=== PATIENT | female | born 1995 | race Hispanic/Latino ===

== ENCOUNTER 2019-04-27 17:20 | Emergency (ER) | payer OTHER ==
[2019-04-27] MEDS ORDERED: DIPHENHYDRAMINE 50 MG/ML VIAL ONE (18:56)
[2019-04-27] MEDS ORDERED: METOCLOPRAMIDE 10 MG/2mL INJ ONE (18:56)
[2019-04-27] MEDS ORDERED: NA CHLORIDE 0.9% 1,000 ML ONE (18:56)
[2019-04-27] MEDS ORDERED: KETOROLAC 30 MG/ML INJ ONE (18:56)
--- NOTE | 2019-04-27 20:05 | EDPHYS ---
Physician Documentation [facility] Name: Clary Duff Age: 24 yrs Sex: Female : 1995 Arrival Date: 04/27/2019 Time: 17:21 Bed 13 Private MD: ED Physician Mayur Leonardo HPI: 04/26 18:26 This 24 yrs old Female presents to ER via Ambulatory with complaints of la1 Nausea, Headache, Blurred Vision, Low Pulse Rate. 18:26 The patient complains of pain to the left restorationist. The patient describes the headache as la1 throbbing. Onset: The symptoms/episode began/occurred this morning. Associated signs and symptoms: Pertinent positives: nausea, Photophobia. Severity of symptoms: At its worst the pain was moderate. Headache History: Denies prior headaches. The symptoms are alleviated by Darkened room, the symptoms are aggravated by nothing. The patient has not experienced similar symptoms in the past. pt reports pain in left restorationist with right sided visual changes. Pt PEREZ is improving, reports a little blurred vision in the right eye at this time. 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 - Social history:: Smoking status: Patient denies any tobacco usage or history of. ROS: 18:27 Constitutional: Negative for fever, chills, and weight loss, Eyes: + blurry vision la1 right eye ENT: Negative for injury, pain, and discharge, Neck: Negative for injury, pain, and swelling, Cardiovascular: Negative for chest pain, palpitations, and edema, Respiratory: Negative for shortness of breath, cough, wheezing, and pleuritic chest pain, Abdomen/GI: Negative for abdominal pain, nausea, vomiting, diarrhea, and constipation, Back: Negative for injury and pain, MS/Extremity: Negative for injury and deformity. 18:27 Skin: Negative for injury, rash, and discoloration. 18:27 Neuro: Positive for headache. Exam: 18:28 Constitutional: This is a well developed, well nourished patient who is awake, alert, la1 and in no acute distress. Head/Face: Normocephalic, atraumatic. Eyes: Pupils equal round and reactive to light, extra-ocular motions intact. ENT: Mucous membranes moist. Neck: Trachea midline, Chest/axilla: Normal chest wall appearance and motion. Nontender with no deformity. No lesions are appreciated. Cardiovascular: Regular rate and rhythm with a normal S1 and S2. Respiratory: Lungs have equal breath sounds bilaterally, clear to auscultation Abdomen/GI: Soft, non-tender, with normal bowel sounds. No distension or tympany. No guarding or rebound. No evidence of tenderness throughout. Back: No spinal tenderness. No costovertebral tenderness. Full range of motion. Skin: Warm, dry with normal turgor. Normal color with no rashes, no lesions, and no evidence of cellulitis. MS/ Extremity: Pulses equal, no cyanosis. Neurovascular intact. Full, normal range of motion. 18:28 Neuro: Orientation: is normal, to person, place, time \T\ situation. Mentation: Memory: is normal, Cranial nerves: CN II- XII are normal as tested, visual gonzalez are intact. extraocular movements are intact, Nystagmus is absent. Cerebellar function: normal finger to nose testing, heel to huff testing is normal, Sensation: is normal. Vital Signs: 17:45 Pulse 98; Pulse Ox 98% ; dm5 19:57 BP 107 / 62; Pulse 91; Resp 16; Pulse Ox 100% on R/A; Pain 0/10; aj1 MDM: 17:46 Patient medically screened. la1 20:03 Data reviewed: vital signs, nurses notes. Data interpreted: Pulse oximetry: on room air la1 is 100 %. Interpretation: normal. Counseling: I had a detailed discussion with the patient and/or guardian regarding: the historical points, exam findings, and any diagnostic results supporting the discharge/admit diagnosis, the need for outpatient follow up, a family practitioner, to return to the emergency department if symptoms worsen or persist or if there are any questions or concerns that arise at home. Medication response: Toradol relieved patient's pain. The symptoms have resolved. Response to treatment: the patient's symptoms have resolved after treatment, the patient's condition has returned to base line, and as a result, I will discharge patient. ED course: pt feeling much better after meds, back to normal. No neurological deficits. strict return precautions given. 04/26 18:53 Order name: Urine Dipstick--Ancillary (enter results) bd 04/26 18:53 Order name: Urine --Ancillary (enter results) bd 04/26 17:55 Order name: IV; Complete Time: 18:51 la1 04/26 17:55 Order name: Urine Dipstick-Ancillary (obtain specimen); Complete Time: 18:51 la1 04/26 17:55 Order name: Urine Test (obtain specimen); Complete Time: 18:51 la1 Administered Medications: 19:04 Drug: NS 0.9% 1000 ml Route: IV; Rate: 1000 ml; Site: left antecubital; aj1 19:58 Follow up: IV Status: Completed infusion; IV Intake: 1000ml aj1 19:05 Drug: TORadol - Ketorolac 15 mg Route: IVP; Site: right antecubital; aj1 19:59 Follow up: Response: No adverse reaction; Marked relief of symptoms aj1 19:05 Drug: Reglan 10 mg Route: IVP; Site: right antecubital; aj1 19:58 Follow up: Response: No adverse reaction; Marked relief of symptoms aj1 19:05 Drug: Benadryl 12.5 mg Route: IVP; Site: right antecubital; aj1 19:58 Follow up: Response: No adverse reaction; Marked relief of symptoms aj1 Disposition: 04/27 07:06 Co-signature as Attending Physician, Mayur Leonardo MD I agree with the assessment and kdr plan of care. Disposition: 04/27/19 20:04 Discharged to Home. Impression: Headache. - Condition is Stable. - Discharge Instructions: General Headache Without Cause, Migraine Headache. - Medication Reconciliation Form, Thank You Letter form. - Follow up: Private Physician; When: 2 - 3 days; Reason: Recheck today's complaints, Re-evaluation by your physician. - Problem is new. - Symptoms have improved. 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 Impression: Headache. Condition is Stable. aa1 Forms are Medication Reconciliation Form, Thank You Letter, Antibiotic Education, Prescription Opioid Use. Follow up: Private Physician; When: 2 - 3 days; Reason: Recheck today's complaints, Re-evaluation by your physician. Problem is new. Symptoms have improved. la1
--- NOTE | 2019-04-27 20:05 | ER ---
Nurse's Notes [facility] Name: Clary Duff Age: 24 yrs Sex: Female : 1995 Arrival Date: 04/27/2019 Time: 17:21 Bed 13 Private MD: Diagnosis: Headache Presentation: 04/26 18:21 Chief complaint: Patient states: She woke up this morning with a headache and nausea. aj1 She felt worse while she was at work so she checked with the diagnostics nurse who checked her vital signs and told her that she was concerned because her heart rate was 92 and her blood pressure was 128/75. Coronavirus screen: The patient has NOT traveled to a country currently being monitored by the [facility] within the last 14 days. Ebola Screen: Patient denies travel to an Ebola-affected area in the 21 days before illness onset. Initial Sepsis Screen: Does the patient meet any 2 criteria? No. Patient's initial sepsis screen is negative. Does the patient have a suspected source of infection? No. Patient's initial sepsis screen is negative. Risk Assessment: Do you want to hurt yourself or someone else? Patient reports no desire to harm self or others. 18:21 Method Of Arrival: Ambulatory aj1 18:21 Acuity: ANN 3 aj1 Triage Assessment: 18:23 General: Appears in no apparent distress. comfortable, Behavior is calm, cooperative, aj1 appropriate for age. Pain: Complains of pain in left gnosticism. GI: Reports nausea. 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 - Social history:: Smoking status: Patient denies any tobacco usage or history of. Screenin:30 Abuse screen: Denies threats or abuse. Denies injuries from another. Nutritional aj1 screening: No deficits noted. Tuberculosis screening: No symptoms or risk factors identified. Assessment: 18:30 General: Appears in no apparent distress. uncomfortable, Behavior is calm, cooperative, aj1 appropriate for age. Pain: Complains of pain in left gnosticism Pain does not radiate. Neuro: Level of Consciousness is awake, alert, obeys commands, Oriented to person, place, time, situation, Adoption Specialist are equal bilaterally Moves all extremities. Full function Gait is steady, Speech is normal, Facial symmetry appears normal, Reports headache. Cardiovascular: Patient's skin is warm and dry. Respiratory: Airway is patent Respiratory effort is even, unlabored, Respiratory pattern is regular, symmetrical. GI: Abdomen is flat, non-distended, Reports nausea, Patient currently denies vomiting. : No signs and/or symptoms were reported regarding the genitourinary system. EENT: No signs and/or symptoms were reported regarding the EENT system. Derm: No signs and/or symptoms reported regarding the dermatologic system. Skin is pink, warm \T\ dry. normal. Musculoskeletal: No signs and/or symptoms reported regarding the musculoskeletal system. Circulation, motion, and sensation intact. 19:57 Reassessment: Patient appears in no apparent distress at this time. Patient and/or aj1 family updated on plan of care and expected duration. Pain level reassessed. Patient is alert, oriented x 3, equal unlabored respirations, skin warm/dry/pink. Awaiting provider reassessment Patient states feeling better. Patient states symptoms have improved. 20:13 Reassessment: Patient appears in no apparent distress at this time. Discussed d/c \T\ f/u aa1 instructions with pt; denies questions or concerns at this time. Ambulatory to lobby with steady gait. Patient denies pain at this time. Vital Signs: 17:45 Pulse 98; Pulse Ox 98% ; dm5 19:57 BP 107 / 62; Pulse 91; Resp 16; Pulse Ox 100% on R/A; Pain 0/10; aj1 ED Course: 17:21 Patient arrived in ED. ag5 17:46 Arik Melendez FNP-C [facility] la1 17:46 Mayur Leonardo MD is Attending Physician. la1 17:54 Taina Gunn, DEEPA is Primary Nurse. aj1 18:23 Triage completed. aj1 18:23 Arm band placed on. aj1 18:30 Patient has correct armband on for positive identification. Bed in low position. Call aj1 light in reach. Side rails up X 1. 18:30 No provider procedures requiring assistance completed. Inserted saline lock: 20 gauge aj1 in right antecubital area, using aseptic technique. 19:08 Report given to DEEPA Garcia. aj1 20:13 IV discontinued, intact, bleeding controlled, No redness/swelling at site. Pressure aa1 dressing applied. Administered Medications: 19:04 Drug: NS 0.9% 1000 ml Route: IV; Rate: 1000 ml; Site: left antecubital; aj1 19:58 Follow up: IV Status: Completed infusion; IV Intake: 1000ml aj1 19:05 Drug: TORadol - Ketorolac 15 mg Route: IVP; Site: right antecubital; aj1 19:59 Follow up: Response: No adverse reaction; Marked relief of symptoms aj1 19:05 Drug: Reglan 10 mg Route: IVP; Site: right antecubital; aj1 19:58 Follow up: Response: No adverse reaction; Marked relief of symptoms aj1 19:05 Drug: Benadryl 12.5 mg Route: IVP; Site: right antecubital; aj1 19:58 Follow up: Response: No adverse reaction; Marked relief of symptoms aj1 Intake: 19:58 IV: 1000ml; Total: 1000ml. aj1 Outcome: 20:04 Discharge ordered by . la1 20:13 Discharged to home ambulatory, with family. aa1 20:13 Condition: good 20:13 Discharge instructions given to patient, family, Instructed on discharge instructions, Demonstrated understanding of instructions, follow-up care. 20:17 Patient left the ED. aa1 Signatures: Taina Gunn RN RN aj1 Elissa Robles RN RN dm5 Radha Nicole RN RN aa1 Arik Melendez, MOLD CHIPPER-C MOLD CHIP[facility] Simon Simmons [facility]
[2019-04-27 20:08] LABS: Urine Blood TRACE (NEG); Urine Glucose NEGATIVE (NEG); Urine Protein NEGATIVE (NEG); Urine Specific Gravity 1.015 (1.005-1.030); Urine pH 6.5 (5.0-7.0)
[2019-04-27 20:36] VITALS: BP 107/62; O2SAT 100
== END 2019-04-27 20:17 | disposition home or self-care (01) ==
LOC: ER 17:20
DX: R51 Headache (principal)
CPT/HCPCS: 96361; 81025; 81003; 96375; 96374; 99283; J2765; J1200; J7030